=== PATIENT | male | born 1985 | race Caucasian/White ===

== ENCOUNTER 2016-10-13 18:59 | Emergency (ER) | payer BC ==
--- NOTE | 2016-10-13 22:16 | PDOC ---
Gen Adult / Medical Screen HPI - General Chief Complaint: Clear for Confinement/DUI Draw Stated Complaint: CLEAR FOR CONFINEMENT Date Seen by Provider: 10/13/16 Time Seen by Provider: 19:05 Source: POSITIVE: Patient, Police Exam Limitations: POSITIVE: Intoxication Nurse's Notes Reviewed & Considered: Yes - History of Present Illness Initial Comments: The patient is a 30-year-old male who is brought to the emergency department by law enforcement for medical clearance for half-way. He apparently was arrested just prior to coming here to the emergency room. He was apparently arrested for interference. He was the passenger of a vehicle which was pulled over and he subsequently got into a confrontation with the police and was arrested. He is quite agitated and somewhat combative on arrival. The patient is complaining that his handcuffs hurt. When asked if he has any medical concerns he states that he does not have any medical concerns and that he is "fine". He states that he was just drinking a couple of beers and riding in a car and doesn 't understand why he is being arrested. He has no other medical complaints at this time. He denies any significant medical history and does not take any prescription medications. He states that he is normally a pretty good johnny. He states that he likes to "drink beer and fk girls". - Patient Home Medications Home Medications: Home Medications NK [No Home Medications Reported] 03/10/14 - Patient Allergies Allergies/Adverse Reactions: Allergies Allergy/AdvReac Type Severity Reaction Status Date / Time No Known Allergies Allergy Verified 10/13/16 19:01 Past Medical History - heen HEENT History: Denies History Cardiovascular History: Denies History Respiratory History: Denies History Gastrointestinal History: Denies History Genitourinary History: Denies History Endocrine History: Denies History Musculoskeletal History: Denies History Neurological History: Denies History Blood Disorders: Denies History Psychiatric History: Denies History History of Sexually Transmitted Diseases: No Male Reproductive History: Denies History Cancer History: Denies History In Past Year Been Physically Harmed or Verbally Threatened: No History of MDRO: No History of Other Communicable Diseases: No Tobacco Use: Current Every Day Smoker Alcohol Use: Heavy Substance Use Type: Marijuana Previous Surgical History: No Significant Family History: No pertinent family hx Past Medical History Reviewed: Reviewed - No Changes ROS - Limitations ROS Limitations: Other (please comment) (Patient appears to be intoxicated and is somewhat combative however he does answer questions and is aware of his current circumstance. He denies any medical concern.) Gen Adult/Medical Screen Exam - General Appearance General Appearance: POSITIVE: Alert (Somewhat combative although he does answer questions appropriately), No Acute Distress - HEENT HEENT: POSITIVE: Head Inspection Nml, Eyes Inspection Nml, Ears Inspection Nml, PERRL, EOMI - Neck Neck: POSITIVE: Normal Inspection - Respiratory Respiratory: POSITIVE: No Respiratory Distress, Breath Sounds Normal - Cardiovascular Cardiovascular: POSITIVE: Regular Rate & Rhythm, No Murmur Peripheral Pulses: Dorsalis-pedis (R): 2+, Dorsalis-pedis (L): 2+ - Abdomen Abdomen: Soft: (All Quadrants), Denies Tenderness: (All Quadrants), No Distention: (All Quadrants) - Back Back: POSITIVE: Normal Inspection - Skin Skin: POSITIVE: Normal Color, No Rash - Extremities Additional Extremities Details: He does have some erythema in the area where his handcuffs on both wrists, no obvious deformity, good radial pulse bilaterally, normal cap refill in his fingers Gen Adlt/Medical Scrn Progress - Patient's Progress MDM / ED Course: The patient admits to drinking tonight. He denies any medical concerns or issues. He appears to be medically stable for half-way and was cleared for confinement. He is advised return to the emergency room if he develops any worsening or any further medical concern. - Consult Counseled: POSITIVE: Patient, RE: DX, RE: Need for F/U Patient Care Time - Estimated PCT Patient Care Time (In Minutes): 15 Vital Signs - Recent Vital Signs Vital Signs: Vital Signs (Last 8 hours) BP 10/13/16 19:00 123/87 - VS Reviewed Vital Signs Reviewed: Yes Discharge Clinical Impression: Alcohol intoxication Condition: Stable Patient Instructions Given at Discharge: Alcohol Intoxication (ED) Additional Instructions: Return to the emergency room if any further medical concerns. Follow Up With: NONE,NONE [Primary Care Provider] -
== END 2016-10-13 19:15 ==
LOC: ER 18:59
DX: F10.129 Alcohol abuse with intoxication, unspecified (principal)
CPT/HCPCS: 99282

== ENCOUNTER 2017-04-13 22:01 | Emergency (ER) | payer BC ==
--- NOTE | 2017-04-13 22:08 | PDOC ---
Gen Adult / Medical Screen HPI - General Chief Complaint: Clear for Confinement/DUI Draw Date Seen by Provider: 04/13/17 Time Seen by Provider: 21:45 Source: POSITIVE: Patient Exam Limitations: POSITIVE: Intoxication Nurse's Notes Reviewed & Considered: No - Indicators Temperature Between 95 and 101 Degrees: Yes Respirations Between 12 and 20: Yes Blood Pressure Between 100-165 (sys) and 60-100 (malagon): Yes Pulse Range Between 60-105 (100 for age > 60 years): Yes Severe Pain (Greater than 5/10 Reported): No Chest or Abdominal Pain: No Inability to Walk: No Pt Reports Active High Risk Cond. (TB/Hepatitis/HIV/Chemo): No Abnormal Mental Status: No - History of Present Illness Initial Comments: Patient is brought in by [employer] for clearance for retirement. Patient was arrested on DUI and smells strongly of alcohol. He is very uncooperative and no further information is forthcoming from this patient. He is ambulatory and in no acute distress. Timing: REPORTS: Unknown Duration: Unknown Similar Symptoms Previously: No Recent Care Received: REPORTS: Denies - Patient Home Medications Home Medications: Home Medications NK [No Home Medications Reported] 03/10/14 - Patient Allergies Allergies/Adverse Reactions: Allergies Allergy/AdvReac Type Severity Reaction Status Date / Time No Known Allergies Allergy Verified 10/13/16 19:01 Past Medical History - heen HEENT History: Denies History Cardiovascular History: Denies History Respiratory History: Denies History Gastrointestinal History: Denies History Genitourinary History: Denies History Endocrine History: Denies History Musculoskeletal History: Denies History Neurological History: Denies History Blood Disorders: Denies History Psychiatric History: Denies History History of Sexually Transmitted Diseases: No Cancer History: Denies History History of MDRO: No History of Other Communicable Diseases: No Alcohol Use: Heavy Substance Use Type: Marijuana Previous Surgical History: No Significant Family History: No pertinent family hx ROS - Limitations ROS Limitations: Intoxication (Futher ROS unavalable due to patients intoxicated state and bellegerance), Uncooperative Gen Adult/Medical Screen Exam - General Appearance General Appearance: POSITIVE: Alert, No Acute Distress, No Evidence of Trauma, Uncooperative - HEENT HEENT: POSITIVE: Head Inspection Nml, Eyes Inspection Nml, Ears Inspection Nml, Nose Inspection Nml, Oral/Dental Inspect. Nml, Pharynx Inspect. Nml, PERRL, EOMI - Pupils Pupil Size: 4 mm: Bilateral - Respiratory Respiratory: POSITIVE: No Respiratory Distress - Neurological / Psychological Mental Status: POSITIVE: Hostile Orientation: POSITIVE: Uncooperative, Cannot Determine - Skin Skin: POSITIVE: Normal Color, Warm, Dry, No Rash - Extremities Extremity: Normal ROM: (All Extremities), Normal Inspection: (All Extremities) Procedures - Laceration/Wound Repair Did patient have a laceration repair: No Gen Adlt/Medical Scrn Progress - Patient's Progress Status: POSITIVE: Improved MDM / ED Course: this is an intoxicated, medically stable patient. He is in no need of further medical intervention at this time. ASSESSMENT: acute alcohol intox PLAN: Transfer to law enforcement. - Consult Counseled: POSITIVE: Patient, RE: DX Patient Care Time - Estimated PCT Patient Care Time (In Minutes): 15 Vital Signs - Recent Vital Signs Vital Signs: Vital Signs (Last 8 hours) Temp Pulse Resp BP Pulse Ox 04/13/17 22:03 97.9 F 94 20 125/89 94 - VS Reviewed Vital Signs Reviewed: Yes Discharge Clinical Impression: Alcohol abuse, Alcohol intoxication Discharge Disposition: Discharged to Custody of Law Enforcement Condition: Stable Patient Instructions Given at Discharge: Alcohol Intoxication (ED), Abuse of Alcohol (ED) Follow Up With: NONE,NONE [Primary Care Provider] - Date Decision to Transfer to Another Facility: 04/13/17 Time Decision to Transfer to Another Facility: 22:10
[2017-04-13 22:10] VITALS: RESP 20; TEMP 97.9
== END 2017-04-13 22:24 ==
LOC: ER 22:01
DX: F10.129 Alcohol abuse with intoxication, unspecified (principal)
CPT/HCPCS: 99282